=== PATIENT | male | born 1955 | race Caucasian/White ===

== ENCOUNTER 2019-01-28 18:09 | Inpatient (IN) | payer MEDICAID ==
[~2019-01-28] VITALS: Ht 175.3 cm; Wt 75.8 kg
--- NOTE | 2019-01-28 18:35 | NUR ---
PT. ARRIVES BY [facility] FROM HOME WITH C/O "SEIZURE LIKE ACTIVITY" WHILE EATING DINNER WITH HIS SON. PT. HAS LIVED WITH HIS SON SINCE AUGUST. PT. WAS NEGATIVE ON THE STROKE SCALE. PT. HAS A 18G IV IN PLACE IN HIS RAC FROM THE FIELD. PT. WAS PLACED ON THE CP MONITOR. PT. IS RESTING WITH THE HOB ELEVATED GREATER THAN 30 DEGREES. SIDERAILS ARE UP X [address] WITH THE CALL LIGHT IN PLACE.
--- NOTE | 2019-01-28 19:01 | NUR ---
REPORT FROM GONSALO MOTT. PT GIVEN URINAL FOR UA SAMPLE. TECH AT BEDSIDE FOR EKG. CALL LIGHT IN REACH
[2019-01-28 19:09] LABS: BASOPHILS # (AUTO) 0.04 x10^3/uL (0-0.1); BASOPHILS % (AUTO) 0 % (0-1); EOSINOPHILS % (AUTO) 4 % (1-7); LYMPHOCYTES # (AUTO) 2.19 x10^3/uL (1-3.4); LYMPHOCYTES % (AUTO) 23 % (22-44); MD NO; MEAN CORPUSCULAR HEMOGLOBIN 30.6 pg (27.5-34.5); MEAN CORPUSCULAR HGB CONC 33.6 g/dL (33.2-36.2); MEAN PLATELET VOLUME 7.8 fL (7.4-10.4); MONOCYTES # (AUTO) 0.34 x10^3/uL (0.2-0.8); MONOCYTES % (AUTO) 4 % (2-9); NEUTROPHILS # (AUTO) 6.48 x10^3/uL (1.8-6.8); NEUTROPHILS % (AUTO) 69 % (42-75); PLATELET COUNT 302 x10^3/uL (130-400)
--- NOTE | 2019-01-28 19:45 | NUR ---
PT RESTING. VSS. UA SENT TO LAB. CALL LIGHT IN REACH
[2019-01-28 19:55] LABS: MICROSCOPIC NOT IND
[2019-01-28 19:57] LABS: ALANINE AMINOTRANSFERASE 27 U/L (12-78); ALBUMIN 3.2 g/dL (3.4-5.0); ANION GAP 7 mmol/L (5-15); CHLORIDE 111 mmol/L (98-107); CREATININE 1.57 mg/dL (0.7-1.3)
[2019-01-28 19:58] LABS: CULTURE INDICATED? NO
[2019-01-28 19:59] LABS: ALKALINE PHOSPHATASE 63 U/L (45-117); BILIRUBIN,TOTAL 0.2 mg/dL (0.2-1.0); TOTAL PROTEIN 5.7 g/dL (6.4-8.2)
[2019-01-28 20:06] LABS: AMPHETAMINE SCREEN, URINE Negative (Negative); BARBITURATE SCREEN, URINE Negative (Negative); BENZODIAZEPINE SCREEN, URINE Negative (Negative); CANNABINOID SCREEN, URINE Negative (Negative); COCAINE SCREEN, URINE Negative (Negative); METHADONE SCREEN, URINE Negative (Negative); OPIATE SCREEN, URINE Negative (Negative)
--- NOTE | 2019-01-28 20:27 | NUR ---
PT GLUCOSE 57. PT GIVEN ORANGE JUICE FOR BS. WILL RECHECK [facility] IN 20 MIN
--- NOTE | 2019-01-28 20:48 | NUR ---
Both above are banner phone numbers
--- NOTE | 2019-01-28 20:53 | NUR ---
FSBG 125 AFTER ORANGE JUICE. PT STILL APPEARS TIRED AND SLIGHTLY CONFUSED. WILL CONTINUE TO MONITOR
--- NOTE | 2019-01-28 21:10 | NUR ---
SPOKE WITH SON. PT NORMALLY AAOX4 AND ONLY MAJOR HX IS HTN. PT SEES MD AT [facility]. SON WILL CALL WHEN HE GETS HOME WITH PTS MED LIST
--- NOTE | 2019-01-28 21:34 | NUR ---
PT GIVEN URINAL. PT RESTING WITH NO NEEDS. PT UPDATED ON POC. CALL LIGHT IN REACH
[2019-01-28] MEDS ORDERED: LORA-446 PO (22:02)
[2019-01-28] MEDS ORDERED: GABA300C10 PO (22:02)
[2019-01-28] MEDS ORDERED: QUET300T5 PO (22:02)
[2019-01-28] MEDS ORDERED: LAMO200T2 PO (22:02)
[2019-01-28] MEDS ORDERED: PROP20TA PO (22:02)
--- NOTE | 2019-01-28 22:09 | NUR ---
MED REC COMPLETED WITH HELP OF SON. PT HAS NO OTHER NEEDS AT THIS TIME. CALL LIGHT IN REACH
[2019-01-28] MEDS ORDERED: D5%-0.45% NACL 1,000 ML IV SCH (22:30)
[2019-01-29 00:16] VITALS: BP 145/73
[2019-01-29] MEDS ORDERED: ACETAMINOPHEN 325 MG TABLET PO PRN (00:30)
[2019-01-29] MEDS ORDERED: BISACODYL 10 MG SUPP PR PRN (00:30)
[2019-01-29] MEDS ORDERED: QUETIAPINE 100MG TABLET PO SCH (00:30)
[2019-01-29] MEDS ORDERED: hydrALAzine 20 MG/ML, 1ML IVPush PRN (00:30)
[2019-01-29] MEDS ORDERED: POLYETHYLENE GLYCOL 17 GM PACKET PO PRN (00:30)
[2019-01-29] MEDS ORDERED: DOCUSATE 100 MG CAPSULE PO PRN (00:30)
[2019-01-29] MEDS ORDERED: ONDANSETRON ODT 4 MG PO PRN (00:30)
[2019-01-29] MEDS ORDERED: ONDANSETRON 2MG/ML, 2ML IVPush PRN (00:30)
[2019-01-29] MEDS ORDERED: PROMETHAZINE 25 MG/ML, 1ML IM PRN (00:30)
[2019-01-29] MEDS: D5%-0.9% NACL 1,000 ML IV SCH ×2 (00:47→10:35)
[2019-01-29 00:49] LABS: FREE T4 (FREE THYROXINE) 0.76 ng/dL (0.76-1.46); THYROID STIMULATING HORMONE 1.79 mIU/L (0.358-3.740)
[2019-01-29 00:54] LABS: HEMOGLOBIN A1C 5.5 % (4.2-6.3)
[2019-01-29] MEDS: GABAPENTIN 300 MG CAPSULE PO SCH ×2 (01:02→08:11)
[2019-01-29] MEDS: HEPARIN 5,000 UNITS/ML, 1ML SQ SCH ×2 (01:02→08:11)
[2019-01-29] MEDS: LAMOTRIGINE 200 MG TABLET PO SCH ×2 (01:02→08:11)
[2019-01-29 08:08] VITALS: BP 107/70
[2019-01-29] MEDS ORDERED: PROPRANOLOL 20 MG TABLET PO SCH (09:00)
[2019-01-29 14:40] VITALS: BP 108/66
== END 2019-01-29 16:43 | disposition home or self-care (01) | DRG 100 ==
LOC: ED 21:40 → EDIP 22:45 → 4EST 01-29 00:10 → DCLOUNGE 01-29 16:34
PROVIDERS: ADMIT Internal Medicine; ATTEND Internal Medicine
DX: G40.909 Epilepsy, unspecified, not intractable, without status epilepticus (principal); N17.0 Acute kidney failure with tubular necrosis; E44.0 Moderate protein-calorie malnutrition; D64.9 Anemia, unspecified; J32.9 Chronic sinusitis, unspecified; G20 Parkinson's disease; E78.5 Hyperlipidemia, unspecified; E16.2 Hypoglycemia, unspecified; Z68.24 Body mass index [BMI] 24.0-24.9, adult
CPT/HCPCS: 36415; 99285; J7042; 70450; 71045; 80053; 80307; 81003; 82140; 82962; 83036; 83605; 83735; 84439; 84443; 85025; 93005; 96374; J1644; 92523-GN